=== PATIENT | female | born 1990 | race Caucasian/White ===

== ENCOUNTER 2017-01-15 10:21 | Emergency (ER) | payer MEDICAID ==
[~2017-01-15] VITALS: Ht 167.6 cm; Wt 60.0 kg
[2017-01-15 10:24] VITALS: BP 119/77; PULSE 72; RESP 14; TEMP 98.4; O2SAT 100
--- NOTE | 2017-01-15 11:38 | PD ---
HPI Chief Complaint: Headache Time Seen by Provider: 11:18 Travel History International Travel<30 days: No Contact w/Intl Traveler<30days: No Traveled to known affect area: No History of Present Illness HPI 26yo F with PMH of migraine presents to the ED with c/o frontal headache since yesterday. Said it is throbbing, constant and feels like her usual migraine. Associated with nausea and 1 episode of vomiting yesterday. Associated with photophobia as well. Said she usually wears contacts but did not wear contact today and that she is seeing some double vision since yesterday. Said that is new for her. Denies any fever, trauma, neck pain, focal weakness or numbness, chest pain, sob, abdominal pain. Pt has some nasal congestion. Did not take anything for pain at home. PFSH Past Medical History ?: Not LMP: NOV 2016 Social History Tobacco Use: No Allergies-Medications (Allergen,Severity, Reaction): Coded Allergies: morphine (Verified Allergy, Mild, Rash, 01/15/17) Reported Meds & Prescriptions Reported Meds & Active Scripts Active Tylenol (Acetaminophen) 325 Mg Tab 650 Mg PO Q6H PRN Review of Systems Except as stated in HPI: all other systems reviewed are Neg Physical Exam Narrative GENERAL: 26yo F not in distress. SKIN: Focused skin assessment warm/dry. HEAD: Atraumatic. Normocephalic. +TTP bilateral frontal and maxillary sinuses. EYES: Pupils equal and round at 3mm bilaterally. ENT: No nasal bleeding or discharge. Mucous membranes pink and moist. NECK: Trachea midline. No JVD. CARDIOVASCULAR: Regular rate and rhythm. No murmur appreciated. RESPIRATORY: No accessory muscle use. Clear to auscultation. Breath sounds equal bilaterally. GASTROINTESTINAL: Abdomen soft, non-tender, nondistended. MUSCULOSKELETAL: No obvious deformities. No clubbing. No cyanosis. No edema. NEUROLOGICAL: Awake and alert. No obvious cranial nerve deficits. Motor grossly within normal limits. Sensation intact and equal. Normal speech. PSYCHIATRIC: Appropriate mood and affect; insight and judgment normal. Data Data Last Documented VS Vital Signs Date Time Temp Pulse Resp B/P (MAP) Pulse Ox O2 Delivery O2 Flow Rate FiO2 01/15/17 13:49 01/15/17 11:21 16 100 Room Air 01/15/17 10:24 98.4 72 Orders Orders Ed Urine Pregnancytest Poc (01/15/17 11:25) Ct Brain W/O Iv Contrast(Rout) (01/15/17 ) Prochlorperazine Inj (Compazine Inj) (01/15/17 11:45) Sodium Chlor 0.9% 1000 Ml Inj (Ns 1000 M (01/15/17 11:45) Ketorolac Inj (Toradol Inj) (01/15/17 13:00) Ed Discharge Order (01/15/17 13:27) [facility] Medical Decision Making Medical Screen Exam Complete: Yes Emergency Medical Condition: Yes Differential Diagnosis Sinus headache vs. migraine headache vs. occipital tumor Narrative Course 26yo F with frontal headache and tender to palpation on exam in bilateral frontal and maxillary sinuses. No focal neurologic deficits. Pt is well appearing with no family or personal history of aneurysm. Only new change is the double vision she said she has with her headache since yesterday that is not typical of her migraine headaches. Will do CT brain to make sure there is no occipital mass and do visual acuity. CT brain is normal. Visual acuity left eye: 20/50, right eye 20/100. Pt given compazine, NS IVF and toradol. Pt reevaluated at bedside and headache and visual changes has resolved. Think this is more sinus headache and pt has no fever and do not think pt needs antibiotics as most likely viral and has only been 1 day. Instructed pt to follow up with primary care and if pain persisted, then can consider antibiotics. Return precautions given. Diagnosis Primary Impression: Sinus headache Patient Instructions: General Instructions Departure Forms: Tests/Procedures Additional Instructions: Please follow up with your primary care physician in 1-2 days. Return to the ED if symptoms worsen. Med/Other Pt SpecificInfo: Prescription(s) given Scripts Acetaminophen (Tylenol) 325 Mg Tab 650 MG PO Q6H Y for PAIN SCALE 1 TO 4, #20 TAB 0 Refills Prov: Ariana Lloyd DO 01/15/17 Disposition: 01 DISCHARGE HOME Condition: Stable Ariana Lloyd Jan 15, 2017 11:38
[2017-01-15] MEDS ORDERED: SODIUM CHLOR 0.9% 1000 ML INJ 1,000 ML IV ONE (11:45)
[2017-01-15] MEDS ORDERED: PROCHLORPERAZINE INJ 10 MG/2 ML VIAL IV PUSH ONE (11:45)
--- NOTE | 2017-01-15 12:41 | RADRPT ---
EXAM DATE/TIME: 01/15/2017 12:25 [facility] COMPARISON: No previous studies available for comparison. INDICATIONS : Headache with vomiting. RADIATION DOSE: 31.42 CTDIvol (mGy) MEDICAL HISTORY : Migraines. SURGICAL HISTORY : None. ENCOUNTER: Initial ACUITY: 1 day PAIN SCALE: 10/10 LOCATION: Bilateral temporal TECHNIQUE: Multiple contiguous axial images were obtained of the head. Using automated exposure control and adj ustment of the mA and/or kV according to patient size, radiation dose was kept as low as reasonably a chievable to obtain optimal diagnostic quality images. DICOM format image data is available electro nically for review and comparison. FINDINGS: CEREBRUM: The ventricles are normal for age. No evidence of midline shift, mass lesion, hemorrhage or acute in farction. No extra-axial fluid collections are seen. POSTERIOR FOSSA: The cerebellum and brainstem are intact. The 4th ventricle is midline. The cerebellopontine angle i s unremarkable. EXTRACRANIAL: The visualized portion of the orbits is intact. SKULL: The calvaria is intact. No evidence of skull fracture. CONCLUSION: Normal examination for a patient of this age. Manolo Waite MD on January 15, 2017 at 12:39 Board Certified Radiologist. This report was verified electronically.
[2017-01-15] MEDS ORDERED: KETOROLAC TROMETHAMINE 30 MG/ML (IVP) VIAL IV PUSH ONE (13:00)
[2017-01-15] MEDS ORDERED: TYLE325T PO (13:27)
== END 2017-01-15 13:49 | disposition home or self-care (01) ==
LOC: NEPD 10:21
DX: R51 Headache (principal)
CPT/HCPCS: 70450; 84703; 96374; 96375; 99285; J0780; J1885; J7030

== ENCOUNTER 2017-03-09 13:20 | Emergency (ER) | payer MEDICAID, OTHER ==
[~2017-03-09 13:20] MED LIST: TYLE325T PO
[2017-03-09 13:22] VITALS: BP 106/63; PULSE 74; RESP 14; TEMP 98.4; O2SAT 99
[2017-03-09 15:32] LABS: AUTOMATED NEUTROPHIL # 8.2 TH/MM3 (1.8-7.7); BASOPHIL % 0.2 % (0.0-2.0); EOSINOPHIL % 0.4 % (0.0-4.0); HEMATOCRIT 40.3 % (35.0-46.0); HEMOGLOBIN 13.5 GM/DL (11.6-15.3); LYMPH % 16.8 % (9.0-44.0); LYMPHOCYTE # 1.8 TH/MM3 (1.0-4.8); MEAN CELL VOLUME 85.5 FL (80.0-100.0); MEAN CORPUSCULAR HEMOGLOBIN 28.6 PG (27.0-34.0); MEAN CORPUSCULAR HGB CONC 33.5 % (32.0-36.0); MEAN PLATELET VOLUME 9.2 FL (7.0-11.0); MONO % 5.4 % (0.0-8.0); MONOCYTE # 0.6 TH/MM3 (0-0.9); NEUT % 77.2 % (16.0-70.0); PLATELET COUNT 249 TH/MM3 (150-450); RED BLOOD COUNT 4.71 MIL/MM3 (4.00-5.30); RED CELL DISTRIBUTION WIDTH 13.9 % (11.6-17.2); WHITE BLOOD COUNT 10.6 TH/MM3 (4.0-11.0)
[2017-03-09 15:54] LABS: ALBUMIN 3.9 GM/DL (3.4-5.0); ALT (GPT) 15 U/L (10-53); AST (GOT) 5 U/L (15-37); BACTERIA, URINE OCC /hpf; BICARBONATE 23.6 MEQ/L (21.0-32.0); BILIRUBIN, URINE NEG (NEG); BLOOD UREA NITROGEN 9 MG/DL (7-18); BLOOD, URINE MOD (NEG); CALCIUM 9.7 MG/DL (8.5-10.1); CHLORIDE 106 MEQ/L (98-107); GLOMERULAR FILTRATION RATE 123 ML/MIN (>89); GLUCOSE,RANDOM 104 MG/DL (74-106); GLUCOSE,URINE NEG (NEG); KETONE, URINE TRACE mg/dL (NEG); MUCUS URINE MOD /lpf (OCC); NITRITE,URINE NEG (NEG); PH, URINE 5.5 (5.0-8.5); SODIUM (NA) 137 MEQ/L (136-145); SQUAMOUS EPITHELIAL CELL URINE 20 /hpf (0-5); URINE COLOR YELLOW (YELLW/STRAW); URINE LEUKOCYTE ESTERASE LARGE (NEG)
[2017-03-09 16:09] LABS: ALKALINE PHOSPHATASE 86 U/L (45-117); TOTAL BILIRUBIN ADULT 0.5 MG/DL (0.2-1.0); TOTAL PROTEIN 7.7 GM/DL (6.4-8.2)
--- NOTE | 2017-03-09 17:37 | PD ---
HPI Chief Complaint: Related Problem Time Seen by Provider: 17:05 Travel History International Travel<30 days: No Contact w/Intl Traveler<30days: No Traveled to known affect area: No History of Present Illness HPI 26yo F who is [id number] by LMP of approximately 01/18/17 presents to the ED with c/o lower abdominal cramping, vaginal spotting since yesterday. Said there was some clots too. Denies any fever, chest pain, sob, n/v, dysuria , hematuria or diarrhea. Pt has not seen OBGYN for this yet. Also with some clear vaginal discharge. PFSH Past Medical History Medical History: Denies Significant Hx Diminished Hearing: No Tetanus Vaccination: > 5 Years Influenza Vaccination: No ?: LMP: 12/2016 : 4 Para: 2 Miscarriage: 1 Past Surgical History Surgical History: No Previous Surgery Social History Alcohol Use: No Tobacco Use: No Substance Use: No Allergies-Medications (Allergen,Severity, Reaction): Coded Allergies: morphine (Verified Allergy, Mild, Rash, 01/15/17) Reported Meds & Prescriptions Reported Meds & Active Scripts Active No Active Prescriptions or Reported Medications Review of Systems Except as stated in HPI: all other systems reviewed are Neg Physical Exam Narrative GENERAL: 26yo F not in distress. SKIN: Focused skin assessment warm/dry. HEAD: Atraumatic. Normocephalic. CARDIOVASCULAR: Regular rate and rhythm. No murmur appreciated. RESPIRATORY: No accessory muscle use. Clear to auscultation. Breath sounds equal bilaterally. GASTROINTESTINAL: Abdomen soft, non-tender, nondistended. No rebound tenderness or guarding. PELVIC: +Clear/whitish discharge. No blood. Cervical os closed. No CMT or adnexal tenderness bilateral. BACK: No CVA tenderness bilaterally. MUSCULOSKELETAL: No obvious deformities. No clubbing. No cyanosis. No edema. NEUROLOGICAL: Awake and alert. No obvious cranial nerve deficits. Motor grossly within normal limits. Normal speech. PSYCHIATRIC: Appropriate mood and affect; insight and judgment normal. Data Data Last Documented VS Vital Signs Date Time Temp Pulse Resp B/P (MAP) Pulse Ox O2 Delivery O2 Flow Rate FiO2 03/09/17 19:12 72 16 102/57 (72) 99 Room Air 03/09/17 13:22 98.4 Orders Orders Beta Hcg (Quant/Titer) (03/09/17 13:55) Complete Blood Count With Diff (03/09/17 13:55) Comprehensive Metabolic Panel (03/09/17 13:55) Complete Rh (03/09/17 13:55) Urinalysis - C+S If Indicated (03/09/17 13:55) Ed Urine Pregnancytest Poc (03/09/17 13:55) Urine Culture (03/09/17 14:40) Us Pelvis Preg W Transvaginal (03/09/17 ) Nitrofurantoin Monohyd Macrocr (Macrobid (03/09/17 17:45) Acetaminophen (Tylenol) (03/09/17 17:45) Gc And Chlamydia Pcr (03/09/17 18:26) Wet Prep Profile (03/09/17 18:26) Labs Laboratory Tests Test 03/09/17 14:40 03/09/17 18:28 White Blood Count 10.6 TH/MM3 Red Blood Count 4.71 MIL/MM3 Hemoglobin 13.5 GM/DL Hematocrit 40.3 % Mean Corpuscular Volume 85.5 FL Mean Corpuscular Hemoglobin 28.6 PG Mean Corpuscular Hemoglobin Concent 33.5 % Red Cell Distribution Width 13.9 % Platelet Count 249 TH/MM3 Mean Platelet Volume 9.2 FL Neutrophils (%) (Auto) 77.2 % Lymphocytes (%) (Auto) 16.8 % Monocytes (%) (Auto) 5.4 % Eosinophils (%) (Auto) 0.4 % Basophils (%) (Auto) 0.2 % Neutrophils # (Auto) 8.2 TH/MM3 Lymphocytes # (Auto) 1.8 TH/MM3 Monocytes # (Auto) 0.6 TH/MM3 Eosinophils # (Auto) 0.0 TH/MM3 Basophils # (Auto) 0.0 TH/MM3 CBC Comment DIFF FINAL Differential Comment Urine Color YELLOW Urine Turbidity HAZY Urine pH 5.5 Urine Specific [place] 1.023 Urine Protein TRACE mg/dL Urine Glucose (UA) NEG mg/dL Urine Ketones TRACE mg/dL Urine Occult Blood MOD Urine Nitrite NEG Urine Bilirubin NEG Urine Urobilinogen LESS THAN 2.0 MG/DL Urine Leukocyte Esterase LARGE Urine RBC 2 /hpf Urine WBC 44 /hpf Urine Squamous Epithelial Cells 20 /hpf Urine Bacteria OCC /hpf Urine Mucus MOD /lpf Microscopic Urinalysis Comment CULTURE INDICATED Blood Urea Nitrogen 9 MG/DL Creatinine 0.60 MG/DL Random Glucose 104 MG/DL Total Protein 7.7 GM/DL Albumin 3.9 GM/DL Calcium Level 9.7 MG/DL Alkaline Phosphatase 86 U/L Aspartate Amino Transf (AST/SGOT) 5 U/L Alanine Aminotransferase (ALT/SGPT) 15 U/L Total Bilirubin 0.5 MG/DL Sodium Level 137 MEQ/L Potassium Level 4.2 MEQ/L Chloride Level 106 MEQ/L Carbon Dioxide Level 23.6 MEQ/L Anion Gap 7 MEQ/L Estimat Glomerular Filtration Rate 123 ML/MIN Human Chorionic Gonadotropin, Quant 41716 MIU/ML Clue Cells (Wet Prep) NONE SEEN Vaginal Trichomonas (Wet Prep) NONE SEEN Vaginal Yeast (Wet Prep) NONE SEEN MDM Medical Decision Making Medical Screen Exam Complete: Yes Emergency Medical Condition: Yes Differential Diagnosis Threatened vs. ectopic vs. bacterial vaginosis Narrative Course 26yo F with vaginal spotting since yesterday. Also with some lower abdominal cramping. However, no pain on my abdominal exam. Labs reviewed, no leukocytosis. bHCG 11172. CMP unremarkable. UA showed large leukocyte. WBC 44. Pt given macrobid and acetaminophen. US showed viable IUP with small subchorionic hemorrhage. Wet prep negative. Blood type is A positive. No rhogam needed. Pt reevaluated at bedside and feels better. No abdominal pain. Tolerating PO. Return precautions given. Diagnosis Primary Impression: UTI (urinary tract infection) Qualified Codes: N39.0 - Urinary tract infection, site not specified; R31.9 - Hematuria, unspecified Additional Impression: Vaginal bleeding in Patient Instructions: General Instructions Departure Forms: Tests/Procedures Additional Instructions: Please follow up with your OBGYN in 3-7 days. Return to the ED if symptoms worsen. Med/Other Pt SpecificInfo: Prescription(s) given Scripts Nitrofurantoin Monohydrate Macrocrystals (Macrobid) 100 Mg Cap 100 MG PO BID for Infection for 5 Days, #10 CAP 0 Refills Prov: LloydAriana 03/09/17 Disposition: 01 DISCHARGE HOME Condition: Stable Ariana Lloyd DO Mar 09, 2017 17:37
[2017-03-09] MEDS ORDERED: NITROFURANTOIN MONOHYD MACROCR 100 MG CAP PO ONE (17:45)
[2017-03-09] MEDS ORDERED: ACETAMINOPHEN 325 MG TAB PO ONE (17:45)
[2017-03-09 18:01] VITALS: BP 110/72; PULSE 70; RESP 16; O2SAT 98
--- NOTE | 2017-03-09 19:02 | RADRPT ---
EXAM DATE/TIME: 03/09/2017 17:45 [facility] COMPARISON: No previous studies available for comparison. INDICATIONS : Pelvic pain and bleeding with . LAB(S): Beta-hC MEDICAL HISTORY : . Miscarriage x 1. SURGICAL HISTORY : None. ENCOUNTER: Initial ACUITY: 2 days PAIN SCORE: 5/10 LOCATION: Bilateral pelvis MEASUREMENTS: UTERUS: 8.5 x 5.8 x 4.8 cm ENDOMETRIAL STRIPE: 19 mm RIGHT OVARY: 3.5 x 2.7 x 2.0 cm LEFT OVARY: 2.8 x 1.9 x 1.5 cm FREE FLUID: No CROWN RUMP LENGTH: 0.7 cm = 6 WKS 4 DAYS FHR: 115 BPM FINDINGS: Gestational sac, yolk sac and pole seen in the uterine cavity. [place]-rump length is approximate ly 7.4 mm which corresponds to a gestational age of 6 weeks 4 days. heart tones are demonstrate d. There is a flat/disc-shaped fluid collection adjacent to the gestational sac measures approximatel y 4 mm in maximal thickness and 15 mm in diameter. 17 mm nonvascular hypoechoic nodule seen of the right ovary, likely a corpus luteal cyst. The left ov coretta is normal. There is no free fluid. CONCLUSION: 1. A single, viable intrauterine with a small subchorionic hemorrhage. 2. Corpus luteal cyst of the right ovary. No evidence of ectopic. Jorge Luis Woodward MD on March 09, 2017 at 18:56 Board Certified Radiologist. This report was verified electronically.
[2017-03-09 19:12] VITALS: BP 102/57; PULSE 72; RESP 16; O2SAT 16; O2SAT 99
[2017-03-09] MEDS ORDERED: MACR100C2 PO (19:42)
== END 2017-03-09 20:05 | disposition home or self-care (01) ==
LOC: NEPD 13:20
DX: O23.41 Unspecified infection of urinary tract in pregnancy, first trimester (principal); O46.91 Antepartum hemorrhage, unspecified, first trimester; O26.891 Other specified pregnancy related conditions, first trimester; R31.9 Hematuria, unspecified; Z3A.01 Less than 8 weeks gestation of pregnancy
CPT/HCPCS: 76801; 76817; 80053; 81001; 84702; 84703; 85025; 86901; 87086; 87210; 87491; 87591; 99284

== ENCOUNTER 2017-05-21 21:46 | Emergency (ER) | payer MEDICAID, OTHER ==
[~2017-05-21] VITALS: Ht 170.2 cm; Wt 60.0 kg
[~2017-05-21 21:46] MED LIST changes: +MACR100C2 PO; -TYLE325T PO
[2017-05-21 21:51] VITALS: BP 107/58; PULSE 78; RESP 14; TEMP 97.6; O2SAT 100
[2017-05-22] MEDS ORDERED: ACETAMINOPHEN 325 MG TAB PO ONE (00:45)
--- NOTE | 2017-05-22 00:57 | PD ---
HPI Chief Complaint: Back/ Neck Pain or Injury Time Seen by Provider: 00:38 Travel History International Travel<30 days: No Contact w/Intl Traveler<30days: No Traveled to known affect area: No History of Present Illness HPI 27-year-old 3 para 2 AB 0 with a 17 week IUP presents emergency Department with complaints of right lower back pain with radiation into her right posterior thigh to the knee times one day. She denies any history of trauma. She states the pain is worse when she bends and moves. She states that she feels more comfortable laying on her side remaining still. She's had no urinary frequency, dysuria or hematuria. No vaginal discharge or abnormal bleeding. She's had an ultrasound of her pelvis confirming an IUP. She is followed by OB. PFSH Past Medical History Medical History: Denies Significant Hx Diminished Hearing: No Immunizations Current: Yes Tetanus Vaccination: < 5 Years Influenza Vaccination: No ?: LMP: 11-15-17 : 4 Para: 2 Miscarriage: 1 Past Surgical History Surgical History: No Previous Surgery Social History Alcohol Use: No Tobacco Use: No Substance Use: No Allergies-Medications (Allergen,Severity, Reaction): Coded Allergies: morphine (Verified Allergy, Mild, Rash, 05/22/17) Reported Meds & Prescriptions Reported Meds & Active Scripts Active Review of Systems Except as stated in HPI: all other systems reviewed are Neg Physical Exam Narrative GENERAL: Well-developed, well-nourished in no apparent distress. Nontoxic appearing. HEAD: Normocephalic, atraumatic. EYES: Pupils equal round and reactive. Extraocular motions intact. No scleral icterus. No injection or drainage. ENT: Nose clear. Throat without erythema, tonsillar hypertrophy or exudate. Uvula midline. Airway patent. NECK: Trachea midline. Supple, nontender, moves head freely. No central bony tenderness or spasm. CARDIOVASCULAR: Regular rate and rhythm without murmurs, gallops, or rubs. RESPIRATORY: Clear to auscultation. Breath sounds equal bilaterally. No wheezes , rales, or rhonchi. GASTROINTESTINAL: Abdomen soft, non-tender, nondistended. No hepato-splenomegaly , or palpable masses. No guarding. EXTREMITIES: No clubbing, cyanosis, or edema. No joint tenderness. BACK: No central bony tenderness to palpation of dorsal lumbar spine. Patient has right paralumbar myofascial tenderness. She has a positive straight leg raise of the right. She has intact sensation with good distal pulses. No saddle anesthesia. Deep tendon reflexes are 3+ bilaterally. Decreased range of motion. Without deformity. No flank tenderness. NEUROLOGICAL: Awake, alert and oriented x 3 .Cranial nerves grossly intact. Motor and sensory grossly within normal limits. Normal speech. Data Data Last Documented VS Vital Signs Date Time Temp Pulse Resp B/P (MAP) Pulse Ox O2 Delivery O2 Flow Rate FiO2 05/21/17 21:51 97.6 78 14 107/58 (74) 100 Room Air Orders Orders Ed Discharge Order (05/22/17 00:45) Acetaminophen (Tylenol) (05/22/17 00:45) Ice/Cold Pack (05/22/17 00:45) MDM Medical Decision Making Medical Screen Exam Complete: Yes Emergency Medical Condition: Yes Medical Record Reviewed: Yes Differential Diagnosis MDM: High Differential diagnoses: Fracture, sprain, strain, HNP, nerve or vascular injury , epidural abscess, pilonidal cyst Narrative Course Patient has no urinary symptoms. She has no vaginal complaints or complaints with her . I've had a long lengthy discussion with the patient regarding back pain and inability to treat with NSAIDs and muscle relaxers due to her . I agreed to give her 650 mg of Tylenol by mouth here she is to contact her OB doctor to see if what are the medications that she may take for her pain. She states that she's tried heat without relief. We'll give her ice pack today. She is encouraged to follow-up. I see no evidence of any urinary tract infection, complications were . No acute neurovascular compromise Diagnosis Primary Impression: right lower back pain with sciatica Additional Impression: Patient Instructions: General Instructions Additional Instructions: Rest. Ice or heat whichever seems improved her symptoms the best. Tylenol for pain. Follow-up with a your OB doctor this week. Return to the ER for emergencies. Med/Other Pt SpecificInfo: No Meds Exist/No RX given Disposition: 01 DISCHARGE HOME Condition: Stable Steven Mchugh May 22, 2017 00:57
== END 2017-05-22 01:46 | disposition home or self-care (01) ==
LOC: NEPD 21:46
DX: O26.892 Other specified pregnancy related conditions, second trimester (principal); M54.41 Lumbago with sciatica, right side; Z3A.17 17 weeks gestation of pregnancy
CPT/HCPCS: 99282